=== PATIENT | male | born 1965 | race Caucasian/White ===

== ENCOUNTER → 2023-11-25 10:10 | Outpatient (CLI) | payer BC, SELFPAY | PROVIDERS: PCP Internal Medicine Adolescent Medicine; Visit Provider Internal Medicine Adolescent Medicine | DX: G47.33 Obstructive sleep apnea (adult) (pediatric) (principal); G47.36 Sleep related hypoventilation in conditions classified elsewhere | CPT/HCPCS: G0399 ==

== ENCOUNTER 2025-01-12 15:27 | Outpatient (CLI) | payer BC, SELFPAY ==
[2025-01-12 16:35] LABS: Basophils # 0.1 K/mm3 (0-0.2); Basophils % 0.9 % (0.1-2.0); Eosinophils # 0.2 K/mm3 (0.0-0.4); Hematocrit 50.2 % (42.0-52.0); Hemoglobin 16.7 g/dL (14.1-18.0); Lymphocytes # 1.7 K/mm3 (0.7-4.5); Mean Corpuscular HGB Conc 33.3 g/dL (31.8-35.4); Mean Corpuscular Volume 87.2 fl (80-94); Mean Platelet Volume 11.7 fl (7.4-10.4); Monocytes # 0.6 K/mm3 (0.1-1.0); Monocytes % 7.2 % (1.7-9.3); Neutrophils # 5.2 K/mm3 (1.8-7.8); Neutrophils % 67.6 % (37.0-80.0); Platelet Count 228 K/mm3 (142-424); Red Blood Count 5.76 M/mm3 (4.60-6.20); Red Cell Distribution Width 13.5 % (11.5-17.5); White Blood Count 7.6 K/mm3 (4.8-10.8)
[2025-01-12 17:02] LABS: Alanine Aminotransferase 35 U/L (12-78); Albumin Level 4.4 g/dl (3.5-5.0); Albumin/Globulin Ratio 2.1 (1.1-1.8); Alkaline Phosphatase 63 U/L (38-126); Aspartate Amino Transferase 35 U/L (17-59); Bilirubin,Total 1.5 mg/dl (0.2-1.3); Blood Urea Nitrogen 18 mg/dl (9-20); Calcium 9.3 mg/dl (8.4-10.2); Carbon Dioxide 27 mmol/L (22.0-30.0); Chloride 103 mmol/L (98-107); Estimated Glomerular Filt Rate 76 ml/min (>60); GFR (African American) 93 ML/MIN (>60); Globulin 2.1 g/dL (1.3-3.2); Glucose 75 mg/dl (74-100); Sodium 136 mmol/L (136-145); Total Protein,Serum 6.5 g/dl (6.3-8.2)
[2025-01-12 17:51] LABS: Vitamin B12 651 pg/mL (239-931)
[2025-01-13 10:11] LABS: Testosterone,Total 955 ng/dL (264-916)
== END 2025-01-12 23:59 | disposition home or self-care (01) ==
LOC: LAB 15:29
PROVIDERS: PCP Nurse Practitioner Family; Visit Provider Nurse Practitioner Family
DX: R79.89 Other specified abnormal findings of blood chemistry (principal); E53.8 Deficiency of other specified B group vitamins
CPT/HCPCS: 36415; 80053; 82607; 84403; 85025

== ENCOUNTER 2025-09-26 07:51 | Outpatient (CLI) | payer BC, SELFPAY ==
--- NOTE | 2025-09-26 | CA_ITS ---
APPROVED REPORT Exam: Exercise Treadmill Technologist: Megan Marie Wt: 201 lbs BSA: 2.03 m2 HR: 87 bpm BP: 151/88 mmHg Rhythm: NSR Indications: Chest heaviness and abnormal ECG Stress Test Details Test: Exercise stress testing was performed using a Stvee protocol. HR Resting HR: 87 bpm Max Heart Rate (APMHR): 160.046098 bpm Max HR Achieved: 174 bpm Target HR (85% APMHR): 136.149286 bpm % of APMHR: 108.75 Recovery HR: 120 bpm BP Resting BP: 151.0/88.0 mmHg Max BP: 209.0/97.0 mmHg Recovery BP: 156.0/85.0 mmHg ECG Clinical Reason for Termination: Dyspnea Stress Symptoms: dyspnea Exercise duration: 7:00 min Highest Stage Achieved: Stage 3: 3.4 mph at 14% grade. Exercise capacity: 8.9 METs Stress ECG Conclusion Symptoms - Dyspnea Arrhythmias - PAC ST-T - up to [address] segment depression - Exaggrated baseline abnormalities. Hypertensive response sustained tachycardia - abnormal ECG Electronically signed by : Negin Little MD 09/27/2025 03:44:18
--- NOTE | 2025-09-26 07:53 | NM_ITS ---
APPROVED REPORT Exam: Nuclear Stress Test Indication: Chest pain, SOB, HTN, High cholesterol, Family history Patient Location: Outpatient Stress Tech: Megan Marie ID Tech:Yu Navarro, ARRT, RT (R)(N) Ht: 5 ft 5 in Wt: 201 lbs HR: 92 bpm BP: 147/96 mmHg BSA: 1.98 m2 TID: 0.93 BMI: 33.4 History: Chest pain, SOB, HTN, High cholesterol, Family history Procedure: Patient exercised on Steve protocol 7:00 minutes and sec, resting heart rate 92 bpm, resting blood pressure 147/96 mmHg, with exercise maximum heart rate achived was 174 bpm which is 108 % of the maximum predicted heart rate and blood pressure was 209/97 mmHg. Test was stopped due to SOB. Patient denied any complaint of chest pain. Patient has Average exercise capacity, achieved 8.9 METs of workload on treadmill, the blood pressure response to exercise was Exaggerated. Cardiac Stress and Resting SPECT Images: Cardiac Stress and Resting SPECT images were obtained using technetium 99m Myoview 31.1 mCi stress and 10.71 mCi at rest. Resting and stress imaging in supine and prone positions demonstrate a medium sized, moderate, predominantly fixed perfusion defect in the inferior LV wall. There is a small region of reversibility towards the mid inferior LV wall. Gated imaging demonstrates normal global LV systolic function. LVEF is preserved at 70%. Conclusion: Medium sized, moderate, predominantly fixed perfusion defect in the inferior LV wall. There is a small region of reversibility towards the mid inferior LV wall. Gated imaging demonstrates normal global LV systolic function. LVEF is preserved at 70%. Of note, the patient had an exaggerated hypertensive BP response to exercise. BP control is recommended. Electronically signed by : Negin Little MD 09/27/2025 03:46:08
[2025-09-26] MEDS: ISOTOPE MYOVIEW (PER STUDY) 1 DOSE IV (09:49)
[2025-09-26] MEDS: SODIUM CHLORIDE 0.9% 10ML SYR (RAD ONLY) 10 ML IV ×2 (09:49)
[2025-09-26 11:12] VITALS: BP 151/88; BP 209/97; PULSE 101; RESP 16
== END 2025-09-26 23:59 | disposition home or self-care (01) ==
LOC: RAD 07:52
PROVIDERS: PCP Nurse Practitioner Family; Visit Provider Nurse Practitioner Family
DX: I49.1 Atrial premature depolarization (principal); R94.39 Abnormal result of other cardiovascular function study; R94.31 Abnormal electrocardiogram [ECG] [EKG]; I10 Essential (primary) hypertension; E78.00 Pure hypercholesterolemia, unspecified
CPT/HCPCS: 78452; 93017; 93018; A9502

== ENCOUNTER 2025-10-16 09:05 | Outpatient (CLI) | payer BC, SELFPAY ==
--- NOTE | 2025-10-16 09:30 | CA_ITS ---
APPROVED REPORT EXAM: Comprehensive 2D, Doppler, and color-flow Echocardiogram Transportation Manager: Jane Sousa RT(R) Ht: 5 ft 5 in Wt: 202lbs BSA: 1.99 BP: 150/89 mmHg Indications: chest pain, dyspnea, LORI, abn EKG, abnormal stress. 2D Dimensions LVEF (Costa's) 51.00 % LV Volume 72.00 mL LA Volume 26.20 mL LA Volume Index 12.90 mL/m2 (M/F) 16-34 EF AP4 50.80 % EF AP2 50.9 % EF BP 51.0 % GL Strain -12.5 % M-Mode Dimensions RVDd 3.38 cm (0.9-2.6) LA Diam 3.05 cm (1.9-4.0) LVDd 4.36 cm (3.5-5.7) LVDs 3.15 cm (3.5-5.7) IVSd 0.80 cm (0.6-1.1) PWd 0.83 cm (0.6-1.1) EF (Teich) 54.10% FS 27.80% EDV (Teich) 85.80 mL ESV (Teich) 39.40 mL LV Diastology E Decel Time 213 (160-240 msec) E/A Ratio 1.24 Mitral Valve MV E Max Dustin. 67.0 (40-130 cm/s) MV A Velocity 54.0 (40-130 cm/s) E/A Ratio 1.24 MV PHT 62.0 ms Left Ventricle The left ventricle is normal size. Left ventricular systolic function is normal. The left ventricular ejection fraction is within the normal range. There is increased left ventricular wall thickness. There is normal LV segmental wall motion. The left ventricular diastolic function is normal. LVEF is 55% Right Ventricle The right ventricle is normal size. The right ventricular systolic function is normal. Atria The left atrium size is normal. The right atrium size is normal. There is no color Doppler evidence of interatrial shunt. Aortic Valve The aortic valve opens well. There is no hemodynamically significant aortic valvular stenosis. No aortic regurgitation is present. Mitral Valve The mitral valve is normal in structure. No evidence of mitral valve stenosis. Trace mitral regurgitation is present. Tricuspid Valve The tricuspid valve leaflets are thin and pliable. Trace tricuspid regurgitation. There is insufficient TR jet to estimate RVSP. Pulmonic Valve The pulmonary valve is grossly normal in structure. Trace pulmonic valve regurgitation is present. Great Vessels The aortic root is normal in size. IVC is normal in size and collapses >50% with inspiration. Pericardium There is no pericardial effusion. Other Information Study Quality: Fair Conclusion Normal biventricular systolic function. No significant valvular stenosis or regurgitation. Electronically signed by : Negin Little MD 10/18/2025 12:55:23
== END 2025-10-16 23:59 | disposition home or self-care (01) ==
LOC: RT 09:05
PROVIDERS: PCP Nurse Practitioner Family; Visit Provider Nurse Practitioner Family
DX: I25.118 Atherosclerotic heart disease of native coronary artery with other forms of angina pectoris (principal); G47.33 Obstructive sleep apnea (adult) (pediatric); R94.31 Abnormal electrocardiogram [ECG] [EKG]; R94.39 Abnormal result of other cardiovascular function study
CPT/HCPCS: 93306